=== PATIENT | male | born 1950 | race Caucasian/White ===

== ENCOUNTER 2023-08-07 14:59 | Inpatient (IN) | payer MEDICARE, OTHER ==
[~2023-08-07] VITALS: Ht 193 cm; Wt 59.9 kg
[2023-08-07] MEDS ORDERED: LATA7.5D RIGHTEYE (15:22)
[2023-08-07] MEDS ORDERED: ACET325C7 PO (15:22)
[2023-08-07] MEDS ORDERED: TIMO5DRO18 RIGHTEYE (15:22)
[2023-08-07] MEDS ORDERED: MAGN400O6 PO (15:22)
[2023-08-07] MEDS ORDERED: LORA0.5T48 PO (15:22)
[2023-08-07] MEDS ORDERED: NUT.237L36 PO (15:22)
[2023-08-07] MEDS ORDERED: TEMA7.5C PO (15:22)
[2023-08-07] MEDS ORDERED: MAG355OR18 PO (15:22)
[2023-08-07] MEDS ORDERED: RISP1TAB7 PO (15:22)
[2023-08-07 17:01] LABS: *BILIRUBIN,URIN NEGATIVE (NEGATIVE); *BLOOD, URINE 2+ (NEGATIVE); *CLARITY,URINE CLOUDY (CLEAR); *COLOR,URINE YELLOW (YELLOW); *KETONES,URINE NEGATIVE (NEGATIVE); *PROTEIN,URINE 2+ (NEGATIVE); *UROBILINOGEN,URINE 0.2 E.U./dl (NORMAL); LEUKOCYTE ESTERASE ,URINE 2+ (NEGATIVE); NITRITE, URINE NEGATIVE (NEGATIVE); UGLUCOSE NEGATIVE (NEGATIVE)
[2023-08-07 17:05] LABS: BASOPHILS # (AUTO) 0.2 K/UL (0.0-0.2); BASOPHILS % (AUTO) 2.2 % (0.0-2.0); EOSINOPHILS # (AUTO) 0.3 K/uL (0.0-0.7); EOSINOPHILS % (AUTO) 3.1 % (0.0-7.0); HEMATOCRIT 37.4 % (36.7-47.1); HEMOGLOBIN 12.1 g/dL (12.5-16.3); LYMPHOCYTES # (AUTO) 0.9 K/uL (0.8-4.8); LYMPHOCYTES % (AUTO) 9.3 % (20.5-51.5); MEAN CORPUSCULAR HEMOGLOBIN 31.5 uug (23.8-33.4); MEAN CORPUSCULAR HGB CONC 32 g/dL (32.5-36.3); MEAN CORPUSCULAR VOLUME 97.6 fL (73.0-96.2); MONOCYTES # (AUTO) 0.7 K/uL (0.1-1.30); MONOCYTES % (AUTO) 6.9 % (0.0-11.0); NEUTROPHILS # (AUTO) 7.8 K/uL (1.8-8.9); NEUTROPHILS % (AUTO) 78.5 % (38.5-71.5); PLATELET COUNT (AUTO) 419 K/uL (152-348); RED BLOOD CELL COUNT(AUTO) 3.83 MIL/uL (4.06-5.63); RED CELL DISTRIBUTION WIDTH 14.2 % (12.1-16.2); WHITE BLOOD COUNT (AUTO) 9.9 K/uL (3.6-10.2)
[2023-08-07 17:15] LABS: BACTERIA,URINE MODERATE /HPF (NONE SEEN); WBC,URINE TNTC /HPF (0-3)
[2023-08-07 17:18] LABS: ETHANOL < 3 MG/DL (0-10)
[2023-08-07 17:19] LABS: ALANINE AMINOTRANSFERASE 19 U/L (16-63); ALBUMIN 3.4 g/dL (3.4-5.0); ALKALINE PHOSPHATASE 78 U/L (50-136); ASPARTATE AMINOTRANSFERASE 16 U/L (15-37); BILIRUBIN,DIRECT 0.1 mg/dL (0.0-0.2); BILIRUBIN,TOTAL 0.3 mg/dL (0.2-1.0); CALCIUM 8.9 mg/dL (8.5-10.1); CARBON DIOXIDE 27 mmol/L (21-32); CHLORIDE 104 mmol/L (98-107); CREATININE 1.2 mg/dL (0.6-1.3); GLUCOSE 136 mg/dL (74-106); SODIUM SERUM 140 mmol/L (136-145); TOTAL PROTEIN, SERUM 7.2 g/dL (6.4-8.2); UREA NITROGEN, BLOOD 27 mg/dL (7-18)
[2023-08-07 17:20] LABS: *AMPHETAMINE, URINE NEGATIVE (NEGATIVE); *BARBITURATE, URINE NEGATIVE (NEGATIVE); *BENZODIAZEPINE, URINE NEGATIVE (NEGATIVE); *CANNABINOID, URINE POSITIVE (NEGATIVE); *COCCAINE, URINE NEGATIVE (NEGATIVE); *OPIATE, URINE NEGATIVE (NEGATIVE); *PHENCYCLIDINE SCREEN,URINE NEGATIVE (NEGATIVE)
[2023-08-07 17:24] LABS: FENTANYL, URINE NEGATIVE (NEGATIVE)
[2023-08-07 17:25] LABS: DIFFERENTIAL COMMENT 1
[2023-08-07 17:27] LABS: THYROID STIMULATING HORMONE 3.703 mIU/mL (0.358-3.740)
[2023-08-07] MEDS ORDERED: SULFAMETH/TRIMETH 800/160 MG TABLET PO ONE (18:30)
[2023-08-07 20:12] LABS: BAND % (MANUAL) 11 % (0-10); EOSINOPHILS % (MANUAL) 2 % (0-8); LYMPHOCYTES % (MANUAL) 18 % (20-40); MONOCYTES % (MANUAL) 10 % (2-10); NEUTROPHILS % (MANUAL) 59 % (42-75)
[2023-08-07 20:13] LABS: ANISOCYTOSIS 1+; PLATELET ESTIMATE ADEQUATE
[2023-08-07] MEDS ORDERED: SULFAMETH/TRIMETH 800/160 MG TABLET ONE (20:42)
[2023-08-07 20:55] VITALS: BP 111/70; TEMP 97.9; O2SAT 97
[2023-08-07] MEDS ORDERED: TEMAZEPAM 7.5 MG CAPSULE PO PRN (22:00)
[2023-08-07] MEDS ORDERED: MAG HYDROX/AL HYDROX/SIMETH 30 ML LIQUID UDC PO PRN (22:00)
[2023-08-07] MEDS ORDERED: ACETAMINOPHEN 325 MG TABLET PO PRN (22:00)
[2023-08-07] MEDS ORDERED: MAGNESIUM HYDROXIDE 30 ML LIQUID UDC PO PRN (22:00)
[2023-08-08] MEDS: LORAZEPAM 1 MG TABLET PO PRN (03:49)
[2023-08-08 07:57] VITALS: BP 93/51; TEMP 98.2; O2SAT 100
[2023-08-08] MEDS: SULFAMETH/TRIMETH 800/160 MG TABLET PO SCH ×2 (14:35→21:01)
[2023-08-08 16:07] VITALS: BP 99/57; TEMP 98.6; O2SAT 100
[2023-08-08 20:00] VITALS: BP 98/64; TEMP 98.3; O2SAT 97
[2023-08-09 08:04] VITALS: BP 115/68; TEMP 98.4; O2SAT 99
[2023-08-09] MEDS: LORAZEPAM 1 MG TABLET PO PRN (08:33)
[2023-08-09] MEDS: SULFAMETH/TRIMETH 800/160 MG TABLET PO SCH ×2 (08:33→20:48)
[2023-08-09] MEDS: risperiDONE-M 0.5 MG TAB.RAPDIS PO SCH ×2 (10:15→16:16)
[2023-08-09] MEDS ORDERED: OLANZAPINE 10 MG VIAL IM STA (10:53)
[2023-08-09 16:20] VITALS: BP 107/56; TEMP 98.6; O2SAT 99
[2023-08-09 20:00] VITALS: BP 115/53; TEMP 98.4; O2SAT 97
[2023-08-10 08:03] VITALS: BP 102/67; TEMP 98; O2SAT 98
[2023-08-10] MEDS: risperiDONE-M 0.5 MG TAB.RAPDIS PO SCH ×2 (09:42→17:50)
[2023-08-10] MEDS: SULFAMETH/TRIMETH 800/160 MG TABLET PO SCH ×2 (09:42→21:00)
[2023-08-10 15:33] VITALS: BP 105/61; TEMP 98; O2SAT 98
[2023-08-10 20:00] VITALS: BP 118/60; TEMP 98.1; O2SAT 96
[2023-08-11 08:33] VITALS: BP 116/62; TEMP 98.2; O2SAT 98
[2023-08-11] MEDS: SULFAMETH/TRIMETH 800/160 MG TABLET PO SCH ×2 (09:55→18:10)
[2023-08-11] MEDS: risperiDONE-M 0.5 MG TAB.RAPDIS PO SCH ×2 (09:55→18:10)
[2023-08-11 15:39] VITALS: BP 97/49; TEMP 98.2; O2SAT 100
[2023-08-11 19:57] VITALS: BP 133/66; TEMP 98.1; O2SAT 97
[2023-08-12 07:49] VITALS: BP 104/77; TEMP 98.2; O2SAT 94
[2023-08-12] MEDS: risperiDONE-M 0.5 MG TAB.RAPDIS PO SCH ×2 (08:53→16:18)
[2023-08-12] MEDS: SULFAMETH/TRIMETH 800/160 MG TABLET PO SCH ×2 (08:53→20:11)
[2023-08-12] MEDS ORDERED: LORAZEPAM 1 MG TABLET PO PRN (13:15)
[2023-08-12] MEDS ORDERED: LORAZEPAM 0.5 MG TABLET PO PRN (13:30)
[2023-08-12 15:08] VITALS: BP 126/69; TEMP 98; O2SAT 96
[2023-08-12 20:05] VITALS: BP 127/76; TEMP 97.9; O2SAT 96
[2023-08-12] MEDS ORDERED: risperiDONE 1 MG TABLET PO SCH (21:00)
[2023-08-13 08:41] VITALS: BP 102/62; TEMP 98; O2SAT 100
[2023-08-13] MEDS: risperiDONE-M 0.5 MG TAB.RAPDIS PO SCH ×2 (09:01→16:19)
[2023-08-13 15:11] VITALS: BP 108/69; TEMP 97.8; O2SAT 97
[2023-08-13 20:24] VITALS: BP 100/64; TEMP 97.8; O2SAT 96
[2023-08-13] MEDS ORDERED: risperiDONE-M 0.5 MG TAB.RAPDIS PO SCH (21:00)
[2023-08-14 08:01] VITALS: BP 121/66; TEMP 97.7; O2SAT 98
[2023-08-14] MEDS: risperiDONE-M 0.5 MG TAB.RAPDIS PO SCH ×3 (09:02→21:35)
[2023-08-14] MEDS: DIVALPROEX 125 MG TABLET.DR PO SCH ×2 (10:00→21:35)
[2023-08-14 11:36] LABS: ALANINE AMINOTRANSFERASE 36 U/L (16-63); ALBUMIN 2.9 g/dL (3.4-5.0); ALKALINE PHOSPHATASE 71 U/L (50-136); ASPARTATE AMINOTRANSFERASE 25 U/L (15-37); BILIRUBIN,TOTAL 0.3 mg/dL (0.2-1.0); CALCIUM 8.6 mg/dL (8.5-10.1); CARBON DIOXIDE 27 mmol/L (21-32); CHLORIDE 104 mmol/L (98-107); CREATININE 1.2 mg/dL (0.6-1.3); GLUCOSE 122 mg/dL (74-106); POTASSIUM 4.5 mmol/L (3.5-5.1); SODIUM SERUM 138 mmol/L (136-145); TOTAL PROTEIN, SERUM 6.3 g/dL (6.4-8.2); UREA NITROGEN, BLOOD 28 mg/dL (7-18)
[2023-08-14 16:16] VITALS: BP 110/72; TEMP 97.9; O2SAT 98
[2023-08-14 20:00] VITALS: BP 124/70; TEMP 98.8; O2SAT 98
[2023-08-15 08:25] VITALS: BP 106/63; TEMP 98.3; O2SAT 98
[2023-08-15] MEDS: DIVALPROEX 125 MG TABLET.DR PO SCH (09:11)
[2023-08-15] MEDS: risperiDONE-M 0.5 MG TAB.RAPDIS PO SCH ×3 (09:11→20:22)
[2023-08-15 16:46] VITALS: BP 123/65; TEMP 98.1; O2SAT 98
[2023-08-15 20:00] VITALS: BP 129/76; TEMP 97.8; O2SAT 97
[2023-08-16 07:49] VITALS: BP 104/64; TEMP 98.1; O2SAT 98
[2023-08-16] MEDS: DIVALPROEX 250 MG TABLET.DR PO SCH ×2 (08:56→16:52)
[2023-08-16] MEDS: risperiDONE-M 0.5 MG TAB.RAPDIS PO SCH ×3 (08:57→20:33)
[2023-08-16 16:12] VITALS: BP 110/65; TEMP 98; O2SAT 98
[2023-08-16 20:05] VITALS: BP 106/62; TEMP 98.1; O2SAT 98
[2023-08-17 08:00] VITALS: BP 112/65; TEMP 98; O2SAT 98
[2023-08-17 08:07] LABS: BASOPHILS # (AUTO) 0.1 K/UL (0.0-0.2); BASOPHILS % (AUTO) 1.2 % (0.0-2.0); EOSINOPHILS # (AUTO) 0.2 K/uL (0.0-0.7); EOSINOPHILS % (AUTO) 3.4 % (0.0-7.0); HEMATOCRIT 34.6 % (36.7-47.1); HEMOGLOBIN 11.3 g/dL (12.5-16.3); LYMPHOCYTES # (AUTO) 0.9 K/uL (0.8-4.8); LYMPHOCYTES % (AUTO) 13.2 % (20.5-51.5); MEAN CORPUSCULAR HEMOGLOBIN 31.8 uug (23.8-33.4); MEAN CORPUSCULAR HGB CONC 33 g/dL (32.5-36.3); MEAN CORPUSCULAR VOLUME 97.2 fL (73.0-96.2); MONOCYTES # (AUTO) 1.4 K/uL (0.1-1.30); MONOCYTES % (AUTO) 20.9 % (0.0-11.0); NEUTROPHILS % (AUTO) 61.3 % (38.5-71.5); PLATELET COUNT (AUTO) 428 K/uL (152-348); RED BLOOD CELL COUNT(AUTO) 3.56 MIL/uL (4.06-5.63); RED CELL DISTRIBUTION WIDTH 13.7 % (12.1-16.2); WHITE BLOOD COUNT (AUTO) 6.6 K/uL (3.6-10.2)
[2023-08-17 08:11] LABS: DIFFERENTIAL COMMENT 1
[2023-08-17 09:02] LABS: ALANINE AMINOTRANSFERASE 38 U/L (16-63); ALKALINE PHOSPHATASE 66 U/L (50-136); ASPARTATE AMINOTRANSFERASE 23 U/L (15-37); BILIRUBIN,TOTAL 0.3 mg/dL (0.2-1.0); CALCIUM 8.6 mg/dL (8.5-10.1); CARBON DIOXIDE 25 mmol/L (21-32); CHLORIDE 103 mmol/L (98-107); CREATININE 1.2 mg/dL (0.6-1.3); GLUCOSE 101 mg/dL (74-106); POTASSIUM 4.4 mmol/L (3.5-5.1); SODIUM SERUM 136 mmol/L (136-145); TOTAL PROTEIN, SERUM 6.5 g/dL (6.4-8.2); UREA NITROGEN, BLOOD 29 mg/dL (7-18); VALPROIC ACID 5 ug/mL (50-100)
[2023-08-17] MEDS: DIVALPROEX 250 MG TABLET.DR PO SCH ×2 (09:08→17:32)
[2023-08-17] MEDS: risperiDONE-M 0.5 MG TAB.RAPDIS PO SCH ×3 (09:08→21:05)
[2023-08-17 15:34] LABS: BAND % (MANUAL) 11 % (0-10); EOSINOPHILS % (MANUAL) 1 % (0-8); LYMPHOCYTES % (MANUAL) 12 % (20-40); METAMYELOCYTES % 2 % (0-1); MONOCYTES % (MANUAL) 21 % (2-10); NEUTROPHILS % (MANUAL) 53 % (42-75); PLATELET ESTIMATE ADEQUATE
[2023-08-17 16:00] VITALS: BP 124/66; TEMP 98.8; O2SAT 96
[2023-08-17 19:39] VITALS: BP 118/64; TEMP 98.2; O2SAT 97
[2023-08-18 08:00] VITALS: BP 112/68; TEMP 98.2; O2SAT 97
[2023-08-18] MEDS: DIVALPROEX 250 MG TABLET.DR PO SCH (09:03)
[2023-08-18] MEDS: risperiDONE-M 0.5 MG TAB.RAPDIS PO SCH (09:04)
[2023-08-18] MEDS ORDERED: IBUPROFEN 400 MG TABLET PO PRN (13:45)
== END 2023-08-18 15:30 | DRG 885 ==
LOC: ER 15:08 → GPS 20:48
PROVIDERS: ADMIT Psychiatry & Neurology Psychosomatic Medicine; ATTEND Nurse Practitioner Acute Care
DX: F25.0 Schizoaffective disorder, bipolar type (principal); N17.9 Acute kidney failure, unspecified; G93.41 Metabolic encephalopathy; N39.0 Urinary tract infection, site not specified; F12.10 Cannabis abuse, uncomplicated; H54.62 Unqualified visual loss, left eye, normal vision right eye; H40.9 Unspecified glaucoma; D64.9 Anemia, unspecified; Z79.899 Other long term (current) drug therapy; Z59.89 Other problems related to housing and economic circumstances; R41.9 Unspecified symptoms and signs involving cognitive functions and awareness
CPT/HCPCS: 36415; 70030-TC; 80164; 84443; 85025; G0480; J2358; J3490